=== PATIENT | female | born 1940 | race Caucasian/White ===

== ENCOUNTER → 2016-10-09 | Outpatient (CLI) | payer MEDICARE, BC, OTHER ==
[~2016-10-09] MED LIST: ATOR10TA9 PO; CALC1CAP8 PO; CHOL40002 PO; CRAN200C PO; FLUT9.9S NS; LACT1CAP35 PO; LEVO125T5 PO; LORA0.5T PO; MULT-696 PO; OMEG1CAP6 PO; OMEP20TA62 PO
== END | disposition home or self-care (01) ==
LOC: STAR 09:18
PROVIDERS: ATTEND Urology
DX: Z01.818 Encounter for other preprocedural examination (principal); N20.0 Calculus of kidney
CPT/HCPCS: 81001; 87086; 93005

== ENCOUNTER 2016-10-16 13:37 | Day surgery (SDC) | payer MEDICARE, BC, OTHER ==
[2016-10-09 09:52] VITALS: BP 166/85
[~2016-10-16] VITALS: Ht 175.3 cm; Wt 76.0 kg
[~2016-10-16 13:37] MED LIST changes: +DEXAMETHASONE 4 MG/ML, 1ML ONE; +ONDANSETRON 2MG/ML, 2ML ONE; +PROPOFOL 10 MG/ML, 20ML ONE; +SUCCINYLCHOLINE 20 MG/ML, 10ML ONE
[2016-10-16] MEDS ORDERED: RED600CA2 PO (14:09)
[2016-10-16] MEDS ORDERED: LACTATED RINGERS 1,000 ML IV SCH (14:11)
[2016-10-16] MEDS ORDERED: LIDOCAINE 1%, 2ML SQ PRN (14:30)
[2016-10-16] MEDS ORDERED: MIDAZOLAM 1 MG/ML, 2ML ONE (15:29)
[2016-10-16] MEDS ORDERED: FENTANYL PF 250 MCG/5ML ONE (15:29)
[2016-10-16] MEDS ORDERED: ALBUTEROL/IPRATROPIUM 2.5MG/0.5MG, 3 ML NPPB PRN (16:00)
[2016-10-16] MEDS ORDERED: LABETALOL 5MG/ML, 20ML IV PRN (16:00)
[2016-10-16] MEDS ORDERED: ACETAMINOPHEN 325 MG TABLET PO PRN (16:00)
[2016-10-16] MEDS ORDERED: MEPERIDINE/PF 25MG/0.5ML IVPush PRN (16:00)
[2016-10-16] MEDS ORDERED: OXYcodone 5 MG/5 ML ORAL.SOL UDC PO PRN (16:00)
[2016-10-16] MEDS ORDERED: HYDROmorphone 1 MG/ML, 1ML IV PRN (16:00)
[2016-10-16] MEDS ORDERED: PROMETHAZINE 25 MG/ML, 1ML IV PRN (16:00)
[2016-10-16] MEDS ORDERED: FENTANYL PF 100 MCG/2ML IV PRN (16:00)
[2016-10-16] MEDS ORDERED: ONDANSETRON 2MG/ML, 2ML IVPush PRN (16:00)
[2016-10-16] MEDS ORDERED: hydrALAzine 20 MG/ML, 1ML IV PRN (16:00)
[2016-10-16] MEDS ORDERED: MIDAZOLAM 1 MG/ML, 2ML IV PRN (16:00)
[2016-10-16] MEDS ORDERED: FENTANYL PF 100 MCG/2ML ONE (17:05)
[2016-10-16] MEDS ORDERED: OXYcodone 5 MG/5 ML ORAL.SOL UDC ONE (17:05)
[2016-10-16] MEDS ORDERED: PROMETHAZINE 25 MG/ML, 1ML ONE (17:11)
[2016-10-16] MEDS ORDERED: LABETALOL 5MG/ML, 20ML ONE (17:16)
== END 2016-10-16 18:55 | disposition home or self-care (01) ==
LOC: OUT 13:37
PROVIDERS: ATTEND Urology
DX: N20.0 Calculus of kidney (principal); Z87.440 Personal history of urinary (tract) infections; E03.9 Hypothyroidism, unspecified; E78.5 Hyperlipidemia, unspecified; E78.00 Pure hypercholesterolemia, unspecified; Z88.2 Allergy status to sulfonamides; Z88.6 Allergy status to analgesic agent; Z88.8 Allergy status to other drugs, medicaments and biological substances; I34.0 Nonrheumatic mitral (valve) insufficiency; Z72.89 Other problems related to lifestyle; Z90.710 Acquired absence of both cervix and uterus; M19.90 Unspecified osteoarthritis, unspecified site; Z85.828 Personal history of other malignant neoplasm of skin; Z81.8 Family history of other mental and behavioral disorders; Z82.3 Family history of stroke; Z82.49 Family history of ischemic heart disease and other diseases of the circulatory system
CPT/HCPCS: 50590; J0330; J1100; J2250; J2405; J2550; J2704; J3010; J3490; J7120